=== PATIENT | male | born 1960 | race Caucasian/White ===

== ENCOUNTER 2017-12-04 18:04 | Emergency (ER) | payer BC ==
--- NOTE | 2017-12-04 19:58 | RAD ---
INDICATION: Left knee pain and swelling. TECHNIQUE: 4 views of the left knee were obtained. FINDINGS: The bones are in normal alignment. There is a moderate joint effusion present. No fracture is seen. There is moderate osteoarthritic change in the medial and patellofemoral compartments. IMPRESSION: 1. JOINT EFFUSION. 2. MODERATE OSTEOARTHRITIC CHANGE.
--- NOTE | 2017-12-04 20:09 | RAD ---
INDICATION: Left posterior knee pain and swelling. COMPARISON: There are no prior studies available for comparison. TECHNIQUE: Multiple real-time, color flow and Doppler tracings of the left lower extremity were obtained. FINDINGS: The common femoral, profunda femoral and proximal femoral veins are patent with normal compressibility. There is occlusive deep venous thrombus extending from the mid femoral vein down through the distal femoral, popliteal posterior tibial and peroneal veins. IMPRESSION: EXTENSIVE DEEP VENOUS THROMBUS WITHIN THE MID AND DISTAL FEMORAL, POPLITEAL, POSTERIOR TIBIAL AND PERONEAL VEINS.
[2017-12-04 21:26] LABS: ABS Basophils 0 10^3/ul (0-0.2); ABS Eosinophils 0.3 10^3/ul (0-0.6); ABS Lymphocytes 1.5 10^3/ul (1.0-4.8); ABS Monocytes 0.7 10^3/ul (0-0.8); ABS Nucleated RBC 0 10^3/ul; Eosinophil % 4.5 % (0-6); Hematocrit 44 % (42-52); Hemoglobin 14.9 g/dl (14.0-18.0); Lymphocyte % 19.9 % (25-47); Mean Corpuscular HGB Conc 34 g/dl (31-36); Mean Corpuscular Hemoglobin 29 pg (27-31); Mean Corpuscular Volume 86 fL (80-94); Mean Platelet Volume 10 um3 (7.4-10.4); Nucleated Red Blood Cells % 0; Platelet Count 130 10^3/ul (150-450); Red Blood Count 5.08 10^6/ul (4.0-5.4); Red Cell Distribution Width 14 % (10.5-15); White Blood Count 7.5 10^3/ul (3.5-10.8)
[2017-12-04 21:35] LABS: INR 0.98 (0.77-1.02)
[2017-12-04 21:38] LABS: EGFR Non-African American 81.6 (>60)
[2017-12-04] MEDS ORDERED: Enoxaparin(*) 100 MG/ML SYR SUBCUT ONE (22:20)
[2017-12-04] MEDS ORDERED: Warfarin TAB(*) 5 MG PO ONE (22:20)
[2017-12-04] MEDS ORDERED: Enoxaparin(*) 150 MG/ML 1 ML SYRINGE SUBCUT ONE (23:00)
[2017-12-04 23:11] VITALS: BP 134/80
--- NOTE | 2017-12-16 11:14 | ED ---
Lower Extremity - HPI Summary HPI Summary: Pt here w/ atraumatic LLE pain, swelling x 2 days. Noticed knee pain, swelling and stiffness but reports he has bad knees so didn't think much of this. No known injury to knee but could have been triggered by walking on uneven ground days prior. Here today because lower leg began to swell and is red and sore compared to Rt LE. Denies chest pain, SOB, groin pain, fever, increased heart rate, numbness, tingling, weakness. He has no previous h/o clotting issues. No recent trauma, travel, doesn't smoke, no hormones and no h/o CA. Feels a little better elevated. - History of Current Complaint Chief Complaint: EDExtremityLower Stated Complaint: LT LEG SWOLLEN AND PAIN Time Seen by Provider: 12/04/17 19:00 Hx Obtained From: Patient, Family/[employer] - Pain Intensity: 0 Pain Scale Used: 0-10 Numeric - Allergies/Home Medications Allergies/Adverse Reactions: Allergies Allergy/AdvReac Type Severity Reaction Status Date / Time No Known Allergies Allergy Verified 12/04/17 18:23 PMH/Surg Hx/FS Hx/Imm Hx Previously Healthy: Yes Endocrine/Hematology History: Denies: Hx Anticoagulant Therapy, Hx Blood Disorders, Hx Unexplained Bleeding , Hx Coagulopothy Cardiovascular History: Denies: Hx Deep Vein Thrombosis, Hx Embolism, Hx Peripheral Vascular Disease Musculoskeletal History: Reports: Hx Arthritis - knees Infectious Disease History: No Infectious Disease History: Denies: Traveled Outside the [place] in Last 30 Days - Social History Occupation: Employed Full-time Lives: With Family Alcohol Use: Occasionally Hx Substance Use: No Substance Use Type: Reports: None Hx Tobacco Use: No Smoking Status (MU): Never Smoked Tobacco Review of Systems Constitutional: Negative Cardiovascular: Negative Respiratory: Negative Gastrointestinal: Negative Positive: no symptoms reported Positive: Edema Skin: Other - redness Neurological: Negative Psychological: Normal All Other Systems Reviewed And Are Negative: Yes Physical Exam Triage Information Reviewed: Yes Vital Signs On Initial Exam: Initial Vitals Temp Pulse Resp BP Pulse Ox 98.4 F 83 17 141/83 96 12/04/17 18:05 12/04/17 18:05 12/04/17 18:05 12/04/17 18:05 12/04/17 18:05 Vital Signs Reviewed: Yes Appearance: Positive: Well-Appearing, No Pain Distress, Obese Skin: Positive: Warm, Skin Color Reflects Adequate Perfusion - however Lt tibial region of LE with edema compared to Rt and skin appears more erythematous than Rt Le, Dry, Other - No pedal edema - DP's+2 equal B/L, cap refill < 2 seconds Head/Face: Positive: Normal Head/Face Inspection Eyes: Positive: EOMI ENT: Positive: Hearing grossly normal Respiratory/Lung Sounds: Positive: Breath Sounds Present Cardiovascular: Positive: Pulses are Symmetrical in both Upper and Lower Extremities, Leg Edema Left - + Lorena's Abdomen Description: Positive: Nontender, Soft Musculoskeletal: Positive: Normal, Strength/ROM Intact Neurological: Positive: Normal, Sensory/Motor Intact, Alert, Oriented to Person Place, Time, CN Intact II-III Psychiatric: Positive: Normal - Stephanie Coma Scale Coma Scale Total: 15 Diagnostics - Vital Signs Vital Signs Temp Pulse Resp BP Pulse Ox 12/04/17 23:10 98 F 79 18 134/80 97 12/04/17 18:05 98.4 F 83 17 141/83 96 - Laboratory Lab Results: Lab Results 12/04/17 12/04/17 12/04/17 Range/Units 21:10 21:10 21:10 WBC 7.5 (3.5-10.8) 10^3/ul RBC 5.08 (4.0-5.4) 10^6/ul Hgb 14.9 (14.0-18.0) g/dl Hct 44 (42-52) % MCV 86 (80-94) fL MCH 29 (27-31) pg MCHC 34 (31-36) g/dl RDW 14 (10.5-15) % Plt Count 130 L (150-450) 10^3/ul MPV 10 (7.4-10.4) um3 Neut % (Auto) 66.0 (38-83) % Lymph % (Auto) 19.9 L (25-47) % [place] % (Auto) 9.0 (1-9) % Eos % (Auto) 4.5 (0-6) % Baso % (Auto) 0.6 (0-2) % Absolute Neuts (auto) 5.0 (1.5-7.7) 10^3/ul Absolute Lymphs (auto) 1.5 (1.0-4.8) 10^3/ul Absolute Monos (auto) 0.7 (0-0.8) 10^3/ul Absolute Eos (auto) 0.3 (0-0.6) 10^3/ul Absolute Basos (auto) 0 (0-0.2) 10^3/ul Absolute Nucleated RBC 0 10^3/ul Nucleated RBC % 0 INR (Anticoag Therapy) 0.98 (0.77-1.02) APTT 29.5 (26.0-36.3) seconds Sodium 135 (133-145) mmol/L Potassium 4.3 (3.5-5.0) mmol/L Chloride 103 (101-111) mmol/L Carbon Dioxide 25 (22-32) mmol/L Anion Gap 7 (2-11) mmol/L BUN 15 (6-24) mg/dL Creatinine 0.96 (0.67-1.17) mg/dL Est GFR ( Amer) 105.0 (>60) Est GFR (Non-Af Amer) 81.6 (>60) BUN/Creatinine Ratio 15.6 (8-20) Glucose 89 (70-100) mg/dL Calcium 9.0 (8.6-10.3) mg/dL Result Diagrams: 12/04/17 21:10 12/04/17 21:10 Lab Statement: Any lab studies that have been ordered have been reviewed, and results considered in the medical decision making process. Lower Extremity Course/Dx - Course Course Of Treatment: U/S report reviewed: DVT LLE confirmed (see report for details). 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 DVT has not developed and tx plan reviewed. He has not s/sx of PE. Baseline labs ordered and medication options reviewed w/ pt and including risks and benefits. They opted for lovenox with coumadin and agree to f/u w/ PCP this week for lab recheck as well as to schedule U/S recheck. Reviewed danger s/sx of when to return to ED. Discussed case with Dr. Mendieta. - Diagnoses Provider Diagnoses: Deep vein thrombosis (DVT) of left lower extremity Discharge - Discharge Plan Condition: Stable Disposition: HOME Prescriptions: Enoxaparin(*) [Lovenox(*)] 125 mg SUBCUT Q12HR #11.25 ml Warfarin TAB(*) [Coumadin TAB(*)] 5 mg PO DAILY #4 tab Patient Education Materials: Warfarin (By mouth), Enoxaparin (By injection), Deep Vein Thrombosis (ED) Forms: *Work Release Referrals: Agnieszka Garcia MD [Primary Care Provider] - Additional Instructions: Use medications as directed by myself, nursing and you may reference education provided here in discharge documents. If you have any further questions, please ask the pharmacist filling your prescription. You may also contact your PCP's office for guidance if you need further clarification. DO NOT TAKE NSAID'S WHILE TAKING THESE MEDICATIONS (IE. ibuprofen, advil, aspirin, aleve, naproxen) . Eat a consistent diet and take medications routinely without interruption. If you are prescribed a new medication, contact your PCP so they may closely follow your INR. Call your PCP's office tomorrow to schedule a follow-up appointment and repeat lab draw in 3-5 days. You will also need a repeat U/S in 2 weeks. If this is not available through PCP, please return to ED for testing. Once your INR gets to a range between 2-3 you will no longer require injections of lovenox. Your PCP will discuss when it is safe to make this transition. Do not massage or squeeze your leg and avoid compression stockings, prolonged sitting or standing. You may elevate leg as needed for comfort with swelling, pain. *If you develop chest pain, shortness of breath, fever, increased heart rate, pain traveling up your leg/in groin, or bleeding from nose, into urine, stool, etc return to ED
== END 2017-12-04 23:10 | disposition home or self-care (01) ==
LOC: ED 18:04
DX: I82.412 Acute embolism and thrombosis of left femoral vein (principal); I82.432 Acute embolism and thrombosis of left popliteal vein; I82.442 Acute embolism and thrombosis of left tibial vein; I82.492 Acute embolism and thrombosis of other specified deep vein of left lower extremity; M17.12 Unilateral primary osteoarthritis, left knee
CPT/HCPCS: 36415; 80048; 85025; 85610; 85730; 93005; 99284; A9270-GY; J1650

== ENCOUNTER 2018-10-26 09:42 | Emergency (ER) | payer BC ==
--- NOTE | 2018-10-26 10:38 | ED ---
Lower Extremity - HPI Summary HPI Summary: Patient presents with left lower extremity pain that started yesterday. He reports this calf pain with mild swelling. He did develop some foot tingling however no tommie numbness or weakness. Pain seems to be worse with ambulation. History of DVT here and was on Coumadin for 6 months in the past year. He stopped taking this in May and has been following with Dr. Mccord. He's unsure if he was diagnosed with a coagulopathy? Does not take aspirin. Denies chest pain, shortness of breath, fevers, chills, low back pain/degenerative disc disease. He also denies recent travel, trauma, dehydration, hormone therapy, smoking, h/o cancer. - History of Current Complaint Chief Complaint: EDExtremityLower Stated Complaint: LT LEG PAIN Time Seen by Provider: 10/26/18 09:57 Hx Obtained From: Patient Pain Intensity: 3 - Allergies/Home Medications Allergies/Adverse Reactions: Allergies Allergy/AdvReac Type Severity Reaction Status Date / Time No Known Allergies Allergy Verified 10/26/18 09:55 PMH/Surg Hx/FS Hx/Imm Hx Previously Healthy: Yes Endocrine/Hematology History: Reports: Hx Blood Disorders - factor V leiden carrier Denies: Hx Anticoagulant Therapy, Hx Blood Transfusions, Hx Systemic Lupus Erythematosus, Hx Sickle Cell Disease, Hx Anemia, Hx Unexplained Bleeding Cardiovascular History: Reports: Hx Deep Vein Thrombosis - dx'd last year and tx 'd for 6 months w/ coumadin Denies: Hx Embolism, Hx Peripheral Vascular Disease Musculoskeletal History: Reports: Hx Arthritis - knees Infectious Disease History: No Infectious Disease History: Denies: Traveled Outside the [place] in Last 30 Days - Social History Occupation: Employed Full-time Lives: With Family Alcohol Use: Occasionally Hx Substance Use: No Substance Use Type: Reports: None Hx Tobacco Use: No Smoking Status (MU): Never Smoked Tobacco Review of Systems Constitutional: Negative Negative: Fever, Chills, Fatigue Cardiovascular: Negative Respiratory: Negative Gastrointestinal: Negative Positive: no symptoms reported Positive: Myalgia, Edema. Negative: Arthralgia, Decreased ROM Skin: Negative Neurological: Negative Psychological: Normal All Other Systems Reviewed And Are Negative: Yes Physical Exam Triage Information Reviewed: Yes Vital Signs On Initial Exam: Initial Vitals Temp Pulse Resp BP Pulse Ox 97.0 F 74 19 144/90 96 10/26/18 09:52 10/26/18 09:52 10/26/18 09:52 10/26/18 09:52 10/26/18 09:52 Vital Signs Reviewed: Yes Appearance: Positive: Well-Appearing, No Pain Distress, Obese - chart today states 170lbs however he is > 170lbs based on PE and most likely 270+lbs based on previous lovenox dosing Skin: Positive: Warm, Skin Color Reflects Adequate Perfusion, Dry - no erythema , no ecchymosis, no lesions or wounds on LE Head/Face: Positive: Normal Head/Face Inspection Eyes: Positive: Normal, EOMI ENT: Positive: Hearing grossly normal, Pharynx normal - mucosa moist Respiratory/Lung Sounds: Positive: Breath Sounds Present Cardiovascular: Positive: Pulses are Symmetrical in both Upper and Lower Extremities, Leg Edema Left - mild, S1, S2. Negative: Leg Edema Right Musculoskeletal: Positive: Normal, Strength/ROM Intact, Pain @ - Lt calf w/ mild edema compared to Rt and very mild TTP Neurological: Positive: Normal, Sensory/Motor Intact, Alert, Oriented to Person Place, Time, CN Intact II-III Psychiatric: Positive: Normal Diagnostics - Vital Signs Vital Signs Temp Pulse Resp BP Pulse Ox 10/26/18 09:52 97.0 F 74 19 144/90 96 - Laboratory Lab Statement: Any lab studies that have been ordered have been reviewed, and results considered in the medical decision making process. Lower Extremity Course/Dx - Course Course Of Treatment: Patient presents with acute left calf pain with mild swelling since yesterday. He denies trauma to the area but has a history of DVT in this leg. US today noted "echogenic material in the popliteal vein with very little flow noted in the popliteal vein. This was present on May 15, 2018 and is consistent with chronic DVT per Miles in the popliteal vein and distal femoral vein". After reviewing report from April 2018 which notes " normal flow", I clarified findings with Dr. Hansen who read the ultrasound today and states flow was the same on both dates, today and April 2018. Furthermore, spoke with Dr. De Guzman regarding patient's past coagulopathy testing as he has one allele for Factor V Leiden. She reports he does not need any new anticoagulation therapy today based on his ultrasound findings and previous labs however he may have close follow-up with his PCP or Dr. Mccord and return to the emergency department if his calf or swelling symptoms worsen in the meantime for repeat ultrasound. We discussed the possibility that this could be early onset of a new DVT however today he does not need treatment. Discussed danger signs and symptoms with the patient who voices understanding and will follow-up as directed. - Diagnoses Provider Diagnoses: Pain of left calf, Chronic deep vein thrombosis (DVT) of left popliteal vein, Chronic deep vein thrombosis (DVT) of left femoral vein Discharge - Sign-Out/Discharge Documenting (check all that apply): Patient Departure - Discharge Plan Condition: Stable Disposition: HOME Patient Education Materials: Leg Edema (ED), Leg Pain (ED) Referrals: Agnieszka Garcia MD [Primary Care Provider] - Kartik Mccord MD [Medical Doctor] - Additional Instructions: The definitive cause of your calf pain was not identified today however your ultrasound reveals a chronic appearing DVT. This appears to be unchanged from your previous ultrasound in April 2018 but we did discuss the possibility that you could be reaccumulating a clot in this area. After speaking with oncology, no medication interventions are recommended at this time other than close follow -up with Dr. Mccord or your PCP. Call today to schedule an appointment. *If your symptoms worsen in the meantime, return to the emergency department for an ultrasound to see if things are worsening. Other danger signs and symptoms may include but are not limited to fever, chest pain, shortness of breath, bloody cough, upper to mid back pain, dizziness, increased heart rate - if any of these present, return to the emergency department immediately. In the meantime, you may try rest, elevation, gentle stretches, hydration, warm compresses, topical analgesic, and/or ibuprofen alternating with acetaminophen for pain. - Billing Disposition and Condition Condition: STABLE Disposition: Home
[2018-10-26 12:24] VITALS: BP 119/74
== END 2018-10-26 12:36 | disposition home or self-care (01) ==
LOC: ED 09:42
DX: I82.432 Acute embolism and thrombosis of left popliteal vein (principal); I82.512 Chronic embolism and thrombosis of left femoral vein; D68.51 Activated protein C resistance; Z79.01 Long term (current) use of anticoagulants; Z86.718 Personal history of other venous thrombosis and embolism
CPT/HCPCS: 99282